=== PATIENT | female | born 2000 | race Caucasian/White ===

== ENCOUNTER 2022-03-09 15:10 | Emergency (ER) | payer OTHER ==
[2022-03-09 15:13] VITALS: TEMP 98.1
--- NOTE | 2022-03-09 15:26 | XR ---
EXAMINATION TYPE: XR wrist complete RT DATE OF EXAM: 03/09/2022 COMPARISON: NONE HISTORY: Pain TECHNIQUE: Four views submitted. FINDINGS: There is a fracture of the distal radius extending to the articular surface. Mild displacement. Ulnar styloid fracture noted. Dorsal angulation of the distal radial fracture. IMPRESSION: 1. Mildly displaced fractures involving the distal radius and ulnar styloid.
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
[2022-03-09] MEDS ORDERED: KETAMINE 10 MG/ML 20 ML VIAL IV ONE (15:57)
[2022-03-09] MEDS ORDERED: SODIUM CHLORIDE 0.9% 1,000 ML IV STA (15:57)
[2022-03-09] MEDS ORDERED: ACET/COD 300 MG/30 MG STARTER PACK 6 TAB BTL PO STA (16:48)
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
[2022-03-09 17:15] VITALS: RESP 16
[2022-03-09 17:17] VITALS: BP 128/78; PULSE 98
== END 2022-03-09 17:26 | disposition home or self-care (01) ==
LOC: EC 15:10
DX: S52.501A Unspecified fracture of the lower end of right radius, initial encounter for closed fracture (principal); S52.614A Nondisplaced fracture of right ulna styloid process, initial encounter for closed fracture; V89.2XXA Person injured in unspecified motor-vehicle accident, traffic, initial encounter; Y92.410 Unspecified street and highway as the place of occurrence of the external cause
CPT/HCPCS: 25605; 96360; 99284